=== PATIENT | male | born 1985 | race Caucasian/White ===

== ENCOUNTER 2017-01-31 11:31 | Observation (INO) ==
[2017-01-31] MEDS ORDERED: ONDANSETRON 4 MG/2 ML VIAL IVP ONE (11:47)
[2017-01-31] MEDS ORDERED: Sodium Chloride 0.9% 1,000 ML PRIMARY IV ONE (11:47)
--- NOTE | 2017-01-31 11:53 | PDOC ---
Altered Mental Status HPI - General Chief Complaint: Altered Mental Status Stated Complaint: ALTERED MENTAL STATUS Date Seen by Provider: 01/31/17 Time Seen by Provider: 11:48 Source: POSITIVE: Patient Exam Limitations: POSITIVE: Clinical condition Nurse's Notes Reviewed & Considered: Yes - History of Present Illness Initial Comments: This is a 31-year-old well-developed well-nourished male who has altered mental status. Patient was brought in by his roommate from the job site sleep quarters where he was found lying on the floor this morning by his roommate. Patient had gotten off work this morning went to the sleep shack and it is unsure of why he was on the floor. He is friend was able to get him up and he seemed to be okay and then he heard him fall. At that time he decided to bring the patient in for evaluation. The patient is oriented only to person, not place and time. He is very slow to answer questions and is unable to follow directions. He denies any drug use or alcohol use. He denies any trauma. Blood glucose was 121. Body Location Affected: REPORTS: Head Timing: REPORTS: Unknown Duration: Unknown Severity: Severe Quality: DENIES: Aching, Burning, Cramping, Dullness, Fullness, "Pain", Sharpness, Stabbing, Throbbing, Tenderness, Itching, Pressure, Other Character of AMS: REPORTS: Disoriented, Confused, Trouble Concentrating Context: DENIES: Halfway Resident, Chronic Dementia, Depression, Found Unrespons by Staff, Found Unresp by Bystander, Found Unrespons by Family, Recent Alcohol Intake, Heavy Alcohol Intake, Drug Abuse, Drug Overdose, Trauma, Head Injury, Infection, Family Members Sick, Given D50 [employer], Given Narcan [employer], Good Response to Tx [employer], Marginal Respon to Tx [employer], No Response to Tx [employer], Other FSBS [employer] (Result in comment): Yes (blood sugars was 121) Patient Normals: REPORTS: Confused, Poor Alertness, Disoriented to Time, Disoriented to Place Associated Symptoms: DENIES: Recent Illness, Fever, Chills, Chest Pain, Neck Pain, Back Pain, Difficulty Breathing, Abdominal Pain, Nausea, Vomiting, New Onset Weakness, Decreas. Ability to Stand, Decreased Ability to Walk, Multiple Falls, Off Balance, Fainting, Dizziness, Involuntary Movements, Seizure, Headache, Other Similar Symptoms Previously: No Recent Care Received: REPORTS: Denies Any Prior Injuries Related to Current Complaint?: No - Patient Home Medications Home Medications: Home Medications Amphet Asp/Amphet/D-Amphet [Adderall 10 mg Tablet] 20 mg PO DAILY 02/01/17 Gabapentin 300 mg PO DAILY 02/01/17 Sertraline HCl [Zoloft] 100 mg PO DAILY 02/01/17 - Patient Allergies Allergies/Adverse Reactions: Allergies 3 Allergy/AdvReac Type Severity Reaction Status Date / Time amoxicillin Allergy RASH Verified 01/31/17 15:38 Penicillins Allergy Anaphylaxis Verified 02/01/17 01:21 ROS - Limitations ROS Limitations: Clinical Condition (Due to patient's altered mental status further review of systems is unavailable.), Mental Impairment Altered Mental Physical Exam - General Appearance General Appearance: POSITIVE: Lethargic - HEENT HEENT: POSITIVE: Head Inspection Nml, Eyes Inspection Nml, Ears Inspection Nml, Nose Inspection Nml, Oral/Dental Inspect. Nml, Pharynx Inspect. Nml, PERRL, EOMI - Pupil Size Pupil Size: 4 mm: Bilateral - Neuro/Psych Neurological: POSITIVE: Confusion Cranial Nerves: POSITIVE: Normal As Tested Cerebellar: POSITIVE: Normal As Tested Peripheral Exam: POSITIVE: No Motor Deficits, No Sensory Deficits, Reflexes Normal Reflexes: Patellar (R): 3+, Patellar (L): 3+, Radial (R): 3+, Radial (L): 3+ - Neck Neck: POSITIVE: Supple, Non Tender - Respiratory Respiratory: POSITIVE: No Respiratory Distress, Breath Sounds Normal - Cardiovascular CVS: POSITIVE: Regular Rate and Rhythm, Heart Sounds Normal Peripheral Pulses: Radial (R): 4+, Radial (L): 4+ - Abdomen Abdomen: Soft: (All Quadrants), Normal Bowel Sounds: (All Quadrants), Denies Tenderness: (All Quadrants), No Splenomegaly: (All Quadrants), No Hepatomegaly: (All Quadrants), No Guarding: (All Quadrants), No Rebound: (All Quadrants), No Palpable Pulse: (All Quadrants), No Palpabale Mass: (All Quadrants), No Distention: (All Quadrants), No Rigidity: (All Quadrants) - Skin Skin: POSITIVE: Normal for Race, No Rash, Warm, Dry - Extremities Extremity: Non-Tender: (All Extremities), Normal ROM: (All Extremities), Normal Inspection: (All Extremities), Pelvis Stable: (All Extremities) Procedure - Procedure Sedation Application Support Applied: Yes Rhythm: Sinus Rhythm Oxygen Delivery Method: Room Air Continuous Pulse Ox: Yes Patent IV Line (s): Yes Patient Tolerated Procedure: Good Comment: Patient required a lumbar puncture for evaluation of cerebrospinal fluid due to his altered mental status. He received 40 mg of IV ketamine. He was then placed into a sitting position on the side of the bed, his back was prepped with Betadine and draped in a sterile manner, then 1% plain lidocaine was infiltrated into the L4-L5 interspace and a spinal needle was introduced. I was unable to enter the spinal canal. Spinal needle was withdraw, 1% plain lidocaine was then infiltrated into interspace L3 L4 and a spinal needle was introduced into the spinal canal were clear colorless CSF were obtained. Total of 4 mL was obtained and sent to the lab for studies, needle was withdrawn, Band -Aid was applied, patient was laid recumbent and recovered without complications in the emergency room. - Lumbar Puncture Risks, Benefits, & Alternatives Discussed: No (patient with altered mental status) Time of Treatment: 00:15 Lumbar Puncture Technique: POSITIVE: Sitting Lumbar Puncture Color: POSITIVE: Colorless, Clear Lumbar Puncture Lab Results Reviewed: Yes Altered Mental Status - Results Reviewed By Me Xrays/CTs/US Reviewed: Yes Discussed with Radiologist: Yes Lab Results Reviewed by Me: Yes CBC and BMP: 01/31/17 11:30 01/31/17 20:27 EKG Interpreted/Reviewed By Me:: Yes (sinus bradycardia with rate of 54 beats a minute.) EKG Interpretation:: POSITIVE: Abnormal EKG (Sinus bradycardia) - Patient's Progress Pain Medication Addressed: POSITIVE: No Re-Examine Time:: 01:57 Status: POSITIVE: Improved MDM / ED Course: Patient was examined, an IV started, blood drawn and sent to the lab for studies , radiographic and EKG examinations were obtained. Patient had a very jus and convoluted ER course. His mental status deteriorated and he became highly agitated. He had to be restrained with physical and chemical restraints. He received IV Haldol, Benadryl, Ativan, and ketamine. He was started on a ketamine drip for sedation in order to protect his airway and heart rate. After approximately 12 hours he began to wake up and the restraints were removed. Patient was then alert and oriented to person place and time but continued to have episodes where he was somnolent and minimally responsive. He remained vitally stable with blood pressure in the 120s systolic the entire time. I was able to contact Dr. Rose, the on-call neurologist, who feels that this is most likely metabolic versus overdose and is not a neurologic problem per se. Findings: CBC shows white count to be normal. Comprehensive metabolic panel shows potassium low at 2.9. This improved to 3.5 after a liter of normal saline with 20 mEq of potassium. Sodium was 150, chloride was 114. Magnesium was normal. TSH is normal. Free T4 is slightly low at 0.84. Urine drug screen is positive for methadone and amphetamines. Urine drug screen is negative for all other substances tested. Blood alcohol is negative. CT scan of his head shows no acute intracranial abnormalities. Lumbar puncture shows CSF with an elevated protein of 64, glucose normal, white blood cells are 0.002. No organisms are seen. Urinalysis is negative, carboxyhemoglobin is pending. Assessment: #1 psychosis, I believe that this is likely related to his hypokalemia. Neuropsychiatriclly, hypokalemia may present with memory impairment, disorientation and confusion. Hypokalemia may mimic neurovegetative symptoms such as weakness, lethargy, apathy, fatigue, and depressed mood, additionally hypokalemia can mimic anxiety reaction such as headache, irritability, nervousness, paresthesias, and visual disturbances, and muscle discomfort. Alternatively this could be unknown drug ingestion versus poisoning. #2 hypokalemia. Plan: Admission, plan MRI in the morning, consider potassium replacement. Antibiotics Given: No - Consult Consult (If Yes, Name of Consulting MD & Time Called): Yes (Dr. Beckham. 0100 hrs ) Consulting MD will see pt:: POSITIVE: [facility] [place] Counseled: POSITIVE: Patient, RE: Lab Results, RE: Radiology Results, RE: DX - CAP/CVA/Syncope CAP: POSITIVE: Blood Cultures, Chest X-ray CVA/Syncope: POSITIVE: EKG Patient Care Time - Estimated PCT Patient Care Time (In Minutes): 180 Vital Signs - VS Reviewed Vital Signs Reviewed: Yes Discharge Clinical Impression: Psychosis, Hypokalemia Discharge Disposition: Admit to Inpatient Condition: Stable Date Decision to Admit to Inpatient: 02/01/17 Time Decision to Admit to Inpatient: 01:00
[2017-01-31 11:55] LABS: BASOPHILS # (AUTO) 0.01 10*3/UL; BASOPHILS % (AUTO) 0.2 % (0-1); EOSINOPHILS # (AUTO) 0.02 10*3/UL; EOSINOPHILS % (AUTO) 0.3 % (0-8); Hematocrit [HCT] 49.1 % (42.0-52.0); Hemoglobin [HGB] 17.3 g/dL (14.0-18.0); LYMPHOCYTES # (AUTO) 0.85 10*3/uL; MEAN CORPUSCULAR HEMOGLOBIN 27.8 PG (27-31); MEAN CORPUSCULAR HGB CONC 35.2 g/dL (33-37); MEAN CORPUSCULAR VOLUME 78.8 FL (80-90); MEAN PLATELET VOLUME 10.1 FL (7.4-12.2); MONOCYTES # (AUTO) 0.46 10*3/UL (0.3-0.8); NEUTROPHILS # (AUTO) 5.25 10*3/UL; NEUTROPHILS % (AUTO) 79.4 % (50-80); RED BLOOD COUNT 6.23 10^6/uL (4.70-6.10)
[2017-01-31 11:56] LABS: PLATELET MORPHOLOGY COMMENT NORMAL MORPHOLOGY (NORM); RBC MORPHOLOGY COMMENT NORMAL MORPHOLOGY (NORM); WBC MORPHOLOGY COMMENT NORMAL MORPHOLOGY (NORM)
[2017-01-31 12:03] LABS: BLOOD UREA NITROGEN 9 mg/dL (7-22); BUN/CREATININE RATIO 11.25 (6-20); MAGNESIUM 1.9 mg/dL (1.6-2.4); SERUM ALBUMIN 4.6 g/dL (3.5-4.8)
--- NOTE | 2017-01-31 12:15 | DI ---
CT HEAD SCAN WITHOUT IV CONTRAST, 01/31/2017 11:47 AM : Clinical History: Acute mental status change. Previous Exam: None at this facility. Scans are obtained from the foramen magnum to the vertex without IV contrast. The 4th, 3rd, and lateral ventricles are of normal size, shape, position, and contour for the patient 's age. There are no abnormal areas of increased or decreased density. There is no evidence of an acu te intracranial hemorrhagic focus. There are no extracerebral mantles or shift of the midline structu res. Bone window evaluation is normal. The paranasal sinuses are normal. READING: Normal non contrast CT head scan.
[2017-01-31] MEDS ORDERED: LORazepam 2 MG/1 ML VIAL ONE (13:27)
[2017-01-31] MEDS: LORazepam 2 MG/1 ML VIAL IVP ONE ×3 (13:29→15:44)
[2017-01-31 13:33] LABS: URINE SAMPLE TYPE CLEAN CATCH URINE
[2017-01-31 13:34] LABS: AMPHETAMINE SCREEN POSITIVE (NEG); BILIRUBIN,URINE NEGATIVE (NEG); CANNABINOID SCREEN,URINE NEGATIVE (NEG); CLARITY,URINE CLEAR (CLEAR); COCAINE SCREEN NEGATIVE (NEG); COLOR,URINE YELLOW (Y); GLUCOSE, URINE (UA) NEGATIVE (NEG); METHADONE URINE SCREEN NEGATIVE (NEG); METHAMPHETAMINES SCREEN,URINE NEGATIVE (NEG); NITRATE,URINE NEGATIVE (NEG); OCCULT BLOOD,URINE NEGATIVE (NEG); OPIATE SCREEN,URINE NEGATIVE (NEG); PH,URINE 6.5 (5.0-8.5); PROTEIN,URINE NEGATIVE (NEG)
[2017-01-31] MEDS ORDERED: diphenhydrAMINE 50 MG/1 ML VIAL ONE (13:37)
[2017-01-31] MEDS ORDERED: HALOPERIDOL LACTATE 5 MG/1 ML AMPULE ONE (13:37)
--- NOTE | 2017-01-31 13:52 | EKG ---
[address] [address] Measurements Intervals [place] Rate: 53 P: 72 TX: 157 QRS: 77 QRSD: 141 T: 85 QT: 411 QTc: 393 Interpretive Statements SINUS BRADYCARDIA INTRAVENTRICULAR CONDUCTION DELAY [130+ ms QRS DURATION] No previous ECG available for comparison Electronically Signed On 02-02-17 20:20:55 MDT by Erick Treviño [id number]
[2017-01-31] MEDS ORDERED: LORazepam 2 MG/1 ML VIAL IVP ONE ×2 (14:10→14:18)
[2017-01-31] MEDS ORDERED: diphenhydrAMINE 50 MG/1 ML VIAL IVP ONE (14:18)
[2017-01-31] MEDS ORDERED: HALOPERIDOL LACTATE 5 MG/1 ML AMPULE IVP ONE ×2 (14:40→15:54)
[2017-01-31] MEDS: HALOPERIDOL LACTATE 5 MG/1 ML AMPULE IVP ONE ×2 (14:43→15:38)
[2017-01-31 16:42] LABS: BLOOD UREA NITROGEN 8 mg/dL (7-22); BUN/CREATININE RATIO 11.42 (6-20); SERUM ALBUMIN 4.1 g/dL (3.5-4.8)
[2017-01-31 16:55] LABS: VENOUS PH 7.38 (7.32-7.42)
[2017-01-31 16:59] LABS: VENOUS PH 7.38 (7.32-7.42)
[2017-01-31] MEDS ORDERED: KETAMINE 100 MG/1 ML - 5 ML IV ONE ×3 (16:59→20:15)
[2017-01-31] MEDS ORDERED: Sodium Chloride 0.9% 250 ML IV ONE (17:44)
[2017-01-31 20:39] LABS: BLOOD UREA NITROGEN 9 mg/dL (7-22); BUN/CREATININE RATIO 12.85 (6-20); SERUM ALBUMIN 4.2 g/dL (3.5-4.8)
[2017-01-31] MEDS ORDERED: Sodium Chloride 0.9% 1,000 ML PRIMARY IV SCH (23:47)
[2017-02-01] MEDS ORDERED: LIDOCAINE HCL/PF 1% (10 MG/1 ML) - 2 ML AMP ONE (00:04)
[2017-02-01 00:27] LABS: APPEARANCE, CSF CLEAR (CLEAR); COLOR, CSF COLORLESS (COLOR)
[2017-02-01] MEDS ORDERED: NORMAL SALINE 10 ML SYRINGE FLUSH IVP PRN (03:05)
[2017-02-01] MEDS ORDERED: ONDANSETRON 4 MG/2 ML VIAL IVP PRN (03:05)
[2017-02-01] MEDS ORDERED: LIDOCAINE W/ SODIUM BICARB 0.5 ML SYR SUBD PRN (03:05)
[2017-02-01] MEDS ORDERED: D5W IV SCH ×4 (03:15→19:00)
[2017-02-01] MEDS ORDERED: POTASSIUM CHLORIDE IV SCH ×4 (03:15→19:00)
[2017-02-01] MEDS ORDERED: [UNRECOGNIZED DRUG - OTHER] PRIMARY IV ONE (03:22)
[2017-02-01] MEDS ORDERED: D5 PRIMARY IV ONE (03:22)
[2017-02-01] MEDS ORDERED: KCL PRIMARY IV ONE (03:22)
--- NOTE | 2017-02-01 03:30 | PDOC ---
HPI - History of Present Illness Date and Time of Service: 02/01/2017 3:24 AM Chief Complaint: Altered mental status and fall History of Present Illness: This is a 31 years old male with medical history significant for history of restless leg syndrome, history of drug abuse on Suboxone, ADHD and previous history of hypokalemia who was brought to the hospital by his roommate as he was found lying on the floor this morning by his roommate. Apparently his friend was able to get him up and he seems to be okay then he had a fall. By that time they brought him to the hospital for evaluation. The patient according to the ER notes was only oriented to person but not place and time. He was very slow to answer questions and was unable to follow directions. They had the several testing done including a CT of the head which was negative, he was slightly hyernatremic and he was hypokalemic. In the ER apparently he became very agitated and they had to restrain him with physical and chemical restraint. He received IV Haldol, Benadryl, Ativan and ketamine. He was started on ketamine drip in the ER. The ER physician apparently spoke with the neurologist in [facility] this is most likely metabolic versus overdose. He did an LP on him which showed high protein. Drug screen came back positive for amphetamine, burenorphine. Apparently then the patient woke up and was more oriented to place and time and cooperative so the restraint were removed and he was admitted. The patient remembers is that the he ended up here because he fell. Couldn't tell me more than that. He denied nausea, vomiting, diarrhea. No abdominal pain, no shortness of breath. He was able to tell me his past medical history. He did say that he had stiffness in his muscles before and that was secondary to hypokalemia he was in [place] they kept him in the ER suggested admission but he didn't want to be admitted. He is denying currently drugs that he is to use a prescription medications, is not drinking he chews tobacco. He denied history of fever. He did not bite his tongue. Past Medical History Medical History: 1. Restless leg syndrome. 2. History of drug usage before he is on Suboxone. 3. History of previous hypokalemia about 3 years ago he said he was in [place] they suggested admission but he did not want to be admitted. 4. History of ADHD Family History: Reviewed an Not Pertinent Past Social History: He chews, doesn't drink. Used to have problems with prescription drugs he said but not anymore. Tobacco Use: Never Smoker Do you dip or chew tobacco: Yes (1 can/2 days) In the Past 12 Months, Have Used or Abuse Any of the Following Substance: None Alcohol Use: Rarely Medication / Allergies Home Medications: Home Medications Medication Instructions Recorded Confirmed Type Amphet Asp/Amphet/D-Amphet 20 mg PO DAILY 02/01/17 02/01/17 History [Adderall 10 mg Tablet] Gabapentin 300 mg PO DAILY 02/01/17 02/01/17 History Sertraline HCl [Zoloft] 100 mg PO DAILY 02/01/17 02/01/17 History Allergies/Adverse Reactions: Allergies 3 Allergy/AdvReac Type Severity Reaction Status Date / Time amoxicillin Allergy RASH Verified 01/31/17 15:38 Penicillins Allergy Anaphylaxis Verified 02/01/17 01:21 Review of Systems - Review of Systems All Systems: Reviewed & No Additional Complaints Except as Stated Exam - Vitals Vital Signs: Vital Signs Oxygen Delivery Method Room Air - General Additional General Exam Details: Patient times to drift into sleeping but he would wake up. He knows the day of the month he knows he is in the hospital he knows his name. His date of . - Head Head Exam: Normal Inspection - Eye Eye Exam: POSITIVE: Normal Appearance - ENT ENT Exam: POSITIVE: Normal Exam - Neck Neck Exam: Normal Inspection, Full ROM Additional Neck Exam Details: There is no neck stiffness - Respiratory Respiratory Exam: POSITIVE: Clear to Auscultation - Bilaterally - Cardiovascular Cardiovascular Exam: POSITIVE: RRR - GI/Abdominal GI/Abdominal Exam: POSITIVE: Normal Bowel Sounds, Non Tender, Non Distended, Soft - Rectal Rectal Exam: POSITIVE: Deferred - External Exam: POSITIVE: Deferred - Extremities Extremities Exam: POSITIVE: Normal Inspection - Back Back Exam: POSITIVE: Normal Inspection - Neurological Neurological Exam: POSITIVE: Oriented x 3, CN II-XII Intact, No Facial Droop Additional Neurological Exam Details: Reflexes symmetrical. Pupils equal and reactive. Strength equal in upper extremities. Somewhat decreased in the lower extremities he said he feels stiff. He is slow to move but the other on feel there is a focal weakness - Psychiatric Psychiatric Exam: POSITIVE: Flat Affect - Integumentary Integumentary Exam: POSITIVE: Normal Color Results - Labs CBC and BMP: 01/31/17 11:30 01/31/17 20:27 - EKG Data -: EKG Interpreted by Me Rate: Bradycardia - EKG Data Additional EKG Details: EKG shows sinus bradycardia with incomplete right bundle branch block - Imaging Status: Report Reviewed by Me (CT of the head is negative) Assessment and Plan - Patient Problems (1) Agitation Current Visit: Yes Status: Acute Comment: Seems to be resolved. Looks either secondary to drugs or metabolic. Does not look like infectious in etiology. He said he's been taking his usual medication and no drugs. He did not run out on his medications. I Think will watch him. Ideally we'll do an MRI but unfortunately its weekend and MRI is unavailable. CT of the head was negative. There is high protein in the CSF on clear etiology is either infectious or noninfectious. Seems more likely to be noninfectious, as there is no neck stiffness and the WBC in the CSF only to. Which makes encephalitis or meningitis unlikely. May be related to the medications no gross abnormalities noted on the CT and MRI and one point may be helpful to see if there is an abnormality that would explain the elevated protein. There is no description of seizure activity that was witnessed and he did not bite his tongue and there was no report of him losing control over his bowel or bladder. Code(s): R45.1 - Restlessness and agitation (2) Hypokalemia Current Visit: Yes Status: Acute Comment: He denied to GI losses of fluid. So maybe this is urinary will check potassium and the creatinine spot in the urine. To see this is secondary to renal losses, Continue replacing and rechecking his potassium. Code(s): E87.6 - Hypokalemia (3) Hypernatremia Current Visit: Yes Status: Acute Comment: Probably secondary to fluid loss, He was given normal saline in the ER will switch him to D5 water. Repeat his labs in few hours. Code(s): E87.0 - Hyperosmolality and hypernatremia
[2017-02-01] MEDS ORDERED: Sodium Chloride 0.9% 1,000 ML ONE (03:51)
[2017-02-01] MEDS ORDERED: POTASSIUM CHLORIDE IV ONE ×2 (04:06→19:40)
[2017-02-01] MEDS ORDERED: D5W 1,000 ML PRIMARY IV ONE ×2 (04:09→19:50)
[2017-02-01 08:35] LABS: BASOPHILS # (AUTO) 0.02 10*3/UL; BASOPHILS % (AUTO) 0.2 % (0-1); EOSINOPHILS # (AUTO) 0.03 10*3/UL; EOSINOPHILS % (AUTO) 0.3 % (0-8); Hematocrit [HCT] 42.9 % (42.0-52.0); Hemoglobin [HGB] 15.1 g/dL (14.0-18.0); LYMPHOCYTES # (AUTO) 1.66 10*3/uL; MEAN CORPUSCULAR HEMOGLOBIN 28.3 PG (27-31); MEAN CORPUSCULAR HGB CONC 35.2 g/dL (33-37); MEAN CORPUSCULAR VOLUME 80.3 FL (80-90); MEAN PLATELET VOLUME 10.3 FL (7.4-12.2); MONOCYTES # (AUTO) 0.89 10*3/UL (0.3-0.8); MONOCYTES % (AUTO) 10.2 % (5-15); NEUTROPHILS # (AUTO) 6.12 10*3/UL; NEUTROPHILS % (AUTO) 70.2 % (50-80); RED BLOOD COUNT 5.34 10^6/uL (4.70-6.10)
[2017-02-01 08:40] LABS: PLATELET MORPHOLOGY COMMENT NORMAL MORPHOLOGY (NORM); RBC MORPHOLOGY COMMENT NORMAL MORPHOLOGY (NORM); WBC MORPHOLOGY COMMENT NORMAL MORPHOLOGY (NORM)
[2017-02-01 08:52] LABS: BLOOD UREA NITROGEN 9 mg/dL (7-22); BUN/CREATININE RATIO 11.25 (6-20); SERUM ALBUMIN 3.6 g/dL (3.5-4.8)
[2017-02-01] MEDS: POTASSIUM CHLORIDE 20 MEQ TAB PO SCH (09:39)
[2017-02-01] MEDS: D5-1/2NS + 10mEq KCL 1,000 ML PRIMARY IV SCH ×2 (10:58→20:30)
[2017-02-01 18:21] LABS: BLOOD UREA NITROGEN 6 mg/dL (7-22)
[2017-02-02 03:33] LABS: BLOOD UREA NITROGEN 6 mg/dL (7-22); BUN/CREATININE RATIO 8.57 (6-20)
[2017-02-02 07:42] VITALS: BP 113/67; RESP 16; TEMP 98; O2SAT 96
--- NOTE | 2017-02-02 08:27 | DCSUMMARY ---
Hospitalization Summary Admit Date: 01/31/17 Discharge Date: 02/02/17 Hospital Course: Discharge diagnoses 1. Altered mental status resolved. 2. Hypokalemia improved, probably secondary to excessive soft drink consumption 3. Elevated CK probably secondary to the fall and/or to the hypokalemia 4. History of ADHD 5. History of restless leg syndrome 6. History of drug usage in the past 7. Elevated protein in CSF unclear significance Hospital course This is a 31 years old male with medical history significant for restless leg syndrome, history of prescription drug abuse in the past on Suboxone, ADHD and previous history of hypokalemia who was brought to the hospital by his roommate. he was found lying on the floor on the morning of admission by his roommate. Apparently his friend was able to get him up and he seems to be okay then he had a fall. after that they brought him to the hospital for evaluation. The patient when they brought him to the ER was only oriented to person but not place and time. He was very slow to answer questions and was unable to follow directions. He had several testing done including a CT of the head which was negative, he was slightly hypernatremic and severely hypokalemic. In the ER he became very agitated and they had to restrain him with physical and chemical restraints. He received IV Haldol, Benadryl, Ativan and ketamine. He was then started on ketamine drip. He was kept in the ER. Apparently the ER physician spoke with the neurologist in [place] which thought this is likely metabolic versus drug overdose. He had an LP which showed high protein. Drug screen came back positive for amphetamine, burenorphine. Apparently the patient then woke up and was more oriented to place and time and was cooperative so the restraints were removed and he was admitted. When I initially talked him he was he said that he is here in the hospital because he fell. He was able to give me his past medical history. He had a history of drug usage, prescription drugs, in the past and that's why he is on the Suboxone. His exam apart from being withdrawn was not remarkable. We put him on IV fluids with potassium watched him overnight. The next day he was much better he was with it was cooperative his exam was unremarkable. He walked around the nurse's station and did well we thought he could be discharged home, he needs follow-up with his primary. The reason for the hypokalemia is either secondary to renal tubular defect versus chronic soft drink consumption. I'm leaning more towards that this is more chronic soft drink consumption as he drinks 8 cans a day, each is 12 ounces so he is drinking about 2.8 L a day. I told him he needs to stop drinking soft drinks and recheck his potassium with his primary if it is continue to be normal then probably this is related to the soft drink consumption, if his potassium goes down then maybe its tubular defects like Bartter syndrome although seems less likely. His blood pressure remained normal so that's argues against hyperaldosteronism. He did have a CT of the head which was negative. The significance of elevated the protein in the CSF is unclear. The white count in the fluid was two so that 's argues against meningitis or encephalitis as a cause for his the presentation. He needs follow-up with his primary they may consider MRI as an outpatient. The cause of the agitation is not clear the urine test was positive as I mentioned but he said that he takes those medications. It's possible that the agitation was metabolic or drug related. The episode though is resolved. Does not look like a seizure. There was no loss of urine or bowel control and the no history of biting his tongue. The ER physician sent few CSF testing including testing for viral infections, however as I said the white cell count was two so that argues against it. Patient clinically is much improved so I don't see a reason to keep him, those tests are send out and probably we will get it a week from now. Laboratory Results 01/31/17 01/31/17 01/31/17 Range/Units 11:30 11:30 11:30 WBC 6.60 (4.8-10.8) 10^3/uL RBC 6.23 H (4.70-6.10) 10^6/uL Hgb 17.3 (14.0-18.0) g/dL Hct 49.1 (42.0-52.0) % MCV 78.8 L (80-90) FL MCH 27.8 (27-31) PG MCHC 35.2 (33-37) g/dL RDW Std Deviation 39.4 (39-50) fL RDW Coeff of Nishant 13.7 (11.5-14.5) % Plt Count 277 (140-350) 10*3/uL MPV 10.1 (7.4-12.2) FL Immature Gran % (Auto) 0.2 (0-5) % Neut % (Auto) 79.4 (50-80) % Lymph % (Auto) 12.9 (10-50) % [place] % (Auto) 7.0 (5-15) % Eos % (Auto) 0.3 (0-8) % Baso % (Auto) 0.2 (0-1) % Immature Gran # (Auto) 0.01 10*3/UL Neut # (Auto) 5.25 10*3/UL Lymph # (Auto) 0.85 10*3/uL [place] # (Auto) 0.46 (0.3-0.8) 10*3/UL Eos # (Auto) 0.02 10*3/UL Baso # (Auto) 0.01 10*3/UL WBC Morphology Comment Normal morphology (NORM) Plt Morphology Comment Normal morphology (NORM) RBC Morph Comment Normal morphology (NORM) VBG pH (7.32-7.42) VBG pCO2 (45-55) mmHg VBG HCO3 (22-26) mmol/L VBG Base Excess (-2-2) MMOL/L Sodium 146 H (135-145) meq/L Potassium 2.6 L (3.8-5.2) meq/L Chloride 105 (98-112) meq/L Carbon Dioxide 28 (23-33) meq/L Anion Gap 13 (5-20) BUN 9 (7-22) mg/dL Creatinine 0.8 (0.70-1.50) mg/dL Estimated GFR > 60 (>60 ml/min/1.73m(2)) BUN/Creatinine Ratio 11.25 (6-20) Glucose 119 H (78-110) mg/dL Calculated Osmolality 301.0 H (267-292) mOsm/kg Lactic Acid (0.70-2.10) MMOL/L Calcium 10.2 (8.7-10.7) mg/dL Magnesium 1.9 (1.6-2.4) mg/dL Total Bilirubin 0.6 (0.3-1.2) mg/dL AST 30 (21-57) IU/L ALT 45 (21-72) IU/L Alkaline Phosphatase 66 (38-126) IU/L Total Creatine Kinase (55-170) IU/L C-Reactive Protein 0.5 (0.0-0.9) mg/dL Total Protein 7.9 (6.1-8.0) g/dL Albumin 4.6 (3.5-4.8) g/dL Globulin 3.3 (2.50-4.10) g/dL Albumin/Globulin Ratio 1.30 (1.3-2.0) mg/g TSH 1.44 (0.2700-4.2000) uIU/mL Free T4 0.82 L (0.93-1.71) ng/dL Ur Collection Type Urine Color (Y) Urine Clarity (CLEAR) Urine pH (5.0-8.5) Ur Specific [place] (1.005-1.030) U Specif Grav (Refrac) Urine Protein (NEG) mg/dl Urine Glucose (UA) (NEG) mg/dL Urine Ketones (NEG) Urine Occult Blood (NEG) Urine Nitrate (NEG) Urine Bilirubin (NEG) Urine Urobilinogen (0.2) EU/dL Ur Leukocyte Esterase (NEG) Ur Culture Indicated? Ur Random Creatinine MG/DL Ur Random Potassium (25.0-125.0) MMOL/DAY CSF Volume ML CSF Appearance (CLEAR) CSF Color (COLOR) CSF WBC (0-0.010) 10^3/uL CSF RBC (0-0.010) 10^6/uL CSF Glucose (50.0-80.0) mg/dL CSF Total Protein (15.0-45.0) mg/dL Urine Opiates Screen (NEG) Ur Buprenorphine (NEG) Ur Oxycodone Screen (NEG) Urine Methadone Screen (NEG) Ur Propoxyphene Screen (NEG) Barbiturate Screen (NEG) U Tricyclic Antidepress (NEG) Phencyclidine Screen (NEG) Amphetamines Screen (NEG) U Methamphetamines Scrn (NEG) Benzodiazepines Screen (NEG) Cocaine Screen (NEG) U Marijuana (THC) Screen (NEG) Serum Alcohol 10 (0-10) mg/dL 01/31/17 01/31/17 01/31/17 Range/Units 11:51 13:05 14:17 WBC (4.8-10.8) 10^3/uL RBC (4.70-6.10) 10^6/uL Hgb (14.0-18.0) g/dL Hct (42.0-52.0) % MCV (80-90) FL MCH (27-31) PG MCHC (33-37) g/dL RDW Std Deviation (39-50) fL RDW Coeff of Nishant (11.5-14.5) % Plt Count (140-350) 10*3/uL MPV (7.4-12.2) FL Immature Gran % (Auto) (0-5) % Neut % (Auto) (50-80) % Lymph % (Auto) (10-50) % [place] % (Auto) (5-15) % Eos % (Auto) (0-8) % Baso % (Auto) (0-1) % Immature Gran # (Auto) 10*3/UL Neut # (Auto) 10*3/UL Lymph # (Auto) 10*3/uL [place] # (Auto) (0.3-0.8) 10*3/UL Eos # (Auto) 10*3/UL Baso # (Auto) 10*3/UL WBC Morphology Comment (NORM) Plt Morphology Comment (NORM) RBC Morph Comment (NORM) VBG pH 7.38 (7.32-7.42) VBG pCO2 34 L (45-55) mmHg VBG HCO3 20 L (22-26) mmol/L VBG Base Excess -5 L (-2-2) MMOL/L Sodium (135-145) meq/L Potassium (3.8-5.2) meq/L Chloride (98-112) meq/L Carbon Dioxide (23-33) meq/L Anion Gap (5-20) BUN (7-22) mg/dL Creatinine (0.70-1.50) mg/dL Estimated GFR (>60 ml/min/1.73m(2)) BUN/Creatinine Ratio (6-20) Glucose (78-110) mg/dL Calculated Osmolality (267-292) mOsm/kg Lactic Acid 1.3 (0.70-2.10) MMOL/L Calcium (8.7-10.7) mg/dL Magnesium (1.6-2.4) mg/dL Total Bilirubin (0.3-1.2) mg/dL AST (21-57) IU/L ALT (21-72) IU/L Alkaline Phosphatase (38-126) IU/L Total Creatine Kinase (55-170) IU/L C-Reactive Protein (0.0-0.9) mg/dL Total Protein (6.1-8.0) g/dL Albumin (3.5-4.8) g/dL Globulin (2.50-4.10) g/dL Albumin/Globulin Ratio (1.3-2.0) mg/g TSH (0.2700-4.2000) uIU/mL Free T4 (0.93-1.71) ng/dL Ur Collection Type Clean catch urine Urine Color Yellow (Y) Urine Clarity Clear (CLEAR) Urine pH 6.5 (5.0-8.5) Ur Specific [place] 1.010 (1.005-1.030) U Specif Grav (Refrac) 1.010 Urine Protein Negative (NEG) mg/dl Urine Glucose (UA) Negative (NEG) mg/dL Urine Ketones Negative (NEG) Urine Occult Blood Negative (NEG) Urine Nitrate Negative (NEG) Urine Bilirubin Negative (NEG) Urine Urobilinogen 1.0 (0.2) EU/dL Ur Leukocyte Esterase Negative (NEG) Ur Culture Indicated? Culture not set Ur Random Creatinine MG/DL Ur Random Potassium (25.0-125.0) MMOL/DAY CSF Volume ML CSF Appearance (CLEAR) CSF Color (COLOR) CSF WBC (0-0.010) 10^3/uL CSF RBC (0-0.010) 10^6/uL CSF Glucose (50.0-80.0) mg/dL CSF Total Protein (15.0-45.0) mg/dL Urine Opiates Screen Negative (NEG) Ur Buprenorphine Positive H (NEG) Ur Oxycodone Screen Negative (NEG) Urine Methadone Screen Negative (NEG) Ur Propoxyphene Screen Negative (NEG) Barbiturate Screen Negative (NEG) U Tricyclic Antidepress Negative (NEG) Phencyclidine Screen Negative (NEG) Amphetamines Screen Positive H (NEG) U Methamphetamines Scrn Negative (NEG) Benzodiazepines Screen Negative (NEG) Cocaine Screen Negative (NEG) U Marijuana (THC) Screen Negative (NEG) Serum Alcohol (0-10) mg/dL 01/31/17 01/31/17 01/31/17 Range/Units 16:34 16:46 20:27 WBC (4.8-10.8) 10^3/uL RBC (4.70-6.10) 10^6/uL Hgb (14.0-18.0) g/dL Hct (42.0-52.0) % MCV (80-90) FL MCH (27-31) PG MCHC (33-37) g/dL RDW Std Deviation (39-50) fL RDW Coeff of Nishant (11.5-14.5) % Plt Count (140-350) 10*3/uL MPV (7.4-12.2) FL Immature Gran % (Auto) (0-5) % Neut % (Auto) (50-80) % Lymph % (Auto) (10-50) % [place] % (Auto) (5-15) % Eos % (Auto) (0-8) % Baso % (Auto) (0-1) % Immature Gran # (Auto) 10*3/UL Neut # (Auto) 10*3/UL Lymph # (Auto) 10*3/uL [place] # (Auto) (0.3-0.8) 10*3/UL Eos # (Auto) 10*3/UL Baso # (Auto) 10*3/UL WBC Morphology Comment (NORM) Plt Morphology Comment (NORM) RBC Morph Comment (NORM) VBG pH 7.38 (7.32-7.42) VBG pCO2 35 L (45-55) mmHg VBG HCO3 21 L (22-26) mmol/L VBG Base Excess -4 L (-2-2) MMOL/L Sodium 148 H 150 H (135-145) meq/L Potassium 3.3 L 3.5 L (3.8-5.2) meq/L Chloride 114 H 114 H (98-112) meq/L Carbon Dioxide 23 24 (23-33) meq/L Anion Gap 11 12 (5-20) BUN 8 9 (7-22) mg/dL Creatinine 0.7 0.7 (0.70-1.50) mg/dL Estimated GFR > 60 > 60 (>60 ml/min/1.73m(2)) BUN/Creatinine Ratio 11.42 12.85 (6-20) Glucose 110 92 (78-110) mg/dL Calculated Osmolality 304.0 H 308.0 H (267-292) mOsm/kg Lactic Acid (0.70-2.10) MMOL/L Calcium 9.4 9.5 (8.7-10.7) mg/dL Magnesium (1.6-2.4) mg/dL Total Bilirubin 0.6 0.7 (0.3-1.2) mg/dL AST 33 42 (21-57) IU/L ALT 41 49 (21-72) IU/L Alkaline Phosphatase 57 66 (38-126) IU/L Total Creatine Kinase (55-170) IU/L C-Reactive Protein (0.0-0.9) mg/dL Total Protein 6.9 7.1 (6.1-8.0) g/dL Albumin 4.1 4.2 (3.5-4.8) g/dL Globulin 2.8 2.9 (2.50-4.10) g/dL Albumin/Globulin Ratio 1.40 1.40 (1.3-2.0) mg/g TSH (0.2700-4.2000) uIU/mL Free T4 (0.93-1.71) ng/dL Ur Collection Type Urine Color (Y) Urine Clarity (CLEAR) Urine pH (5.0-8.5) Ur Specific [place] (1.005-1.030) U Specif Grav (Refrac) Urine Protein (NEG) mg/dl Urine Glucose (UA) (NEG) mg/dL Urine Ketones (NEG) Urine Occult Blood (NEG) Urine Nitrate (NEG) Urine Bilirubin (NEG) Urine Urobilinogen (0.2) EU/dL Ur Leukocyte Esterase (NEG) Ur Culture Indicated? Ur Random Creatinine MG/DL Ur Random Potassium (25.0-125.0) MMOL/DAY CSF Volume ML CSF Appearance (CLEAR) CSF Color (COLOR) CSF WBC (0-0.010) 10^3/uL CSF RBC (0-0.010) 10^6/uL CSF Glucose (50.0-80.0) mg/dL CSF Total Protein (15.0-45.0) mg/dL Urine Opiates Screen (NEG) Ur Buprenorphine (NEG) Ur Oxycodone Screen (NEG) Urine Methadone Screen (NEG) Ur Propoxyphene Screen (NEG) Barbiturate Screen (NEG) U Tricyclic Antidepress (NEG) Phencyclidine Screen (NEG) Amphetamines Screen (NEG) U Methamphetamines Scrn (NEG) Benzodiazepines Screen (NEG) Cocaine Screen (NEG) U Marijuana (THC) Screen (NEG) Serum Alcohol (0-10) mg/dL 01/31/17 02/01/17 02/01/17 Range/Units 23:19 00:10 04:00 WBC (4.8-10.8) 10^3/uL RBC (4.70-6.10) 10^6/uL Hgb (14.0-18.0) g/dL Hct (42.0-52.0) % MCV (80-90) FL MCH (27-31) PG MCHC (33-37) g/dL RDW Std Deviation (39-50) fL RDW Coeff of Nishant (11.5-14.5) % Plt Count (140-350) 10*3/uL MPV (7.4-12.2) FL Immature Gran % (Auto) (0-5) % Neut % (Auto) (50-80) % Lymph % (Auto) (10-50) % [place] % (Auto) (5-15) % Eos % (Auto) (0-8) % Baso % (Auto) (0-1) % Immature Gran # (Auto) 10*3/UL Neut # (Auto) 10*3/UL Lymph # (Auto) 10*3/uL [place] # (Auto) (0.3-0.8) 10*3/UL Eos # (Auto) 10*3/UL Baso # (Auto) 10*3/UL WBC Morphology Comment (NORM) Plt Morphology Comment (NORM) RBC Morph Comment (NORM) VBG pH (7.32-7.42) VBG pCO2 (45-55) mmHg VBG HCO3 (22-26) mmol/L VBG Base Excess (-2-2) MMOL/L Sodium (135-145) meq/L Potassium (3.8-5.2) meq/L Chloride (98-112) meq/L Carbon Dioxide (23-33) meq/L Anion Gap (5-20) BUN (7-22) mg/dL Creatinine (0.70-1.50) mg/dL Estimated GFR (>60 ml/min/1.73m(2)) BUN/Creatinine Ratio (6-20) Glucose (78-110) mg/dL Calculated Osmolality (267-292) mOsm/kg Lactic Acid (0.70-2.10) MMOL/L Calcium (8.7-10.7) mg/dL Magnesium 1.8 (1.6-2.4) mg/dL Total Bilirubin (0.3-1.2) mg/dL AST (21-57) IU/L ALT (21-72) IU/L Alkaline Phosphatase (38-126) IU/L Total Creatine Kinase (55-170) IU/L C-Reactive Protein (0.0-0.9) mg/dL Total Protein (6.1-8.0) g/dL Albumin (3.5-4.8) g/dL Globulin (2.50-4.10) g/dL Albumin/Globulin Ratio (1.3-2.0) mg/g TSH (0.2700-4.2000) uIU/mL Free T4 (0.93-1.71) ng/dL Ur Collection Type Urine Color (Y) Urine Clarity (CLEAR) Urine pH (5.0-8.5) Ur Specific [place] (1.005-1.030) U Specif Grav (Refrac) Urine Protein (NEG) mg/dl Urine Glucose (UA) (NEG) mg/dL Urine Ketones (NEG) Urine Occult Blood (NEG) Urine Nitrate (NEG) Urine Bilirubin (NEG) Urine Urobilinogen (0.2) EU/dL Ur Leukocyte Esterase (NEG) Ur Culture Indicated? Ur Random Creatinine 97.9 MG/DL Ur Random Potassium (25.0-125.0) MMOL/DAY CSF Volume 4 ML CSF Appearance Clear (CLEAR) CSF Color Colorless (COLOR) CSF WBC 0.002 (0-0.010) 10^3/uL CSF RBC 0.001 (0-0.010) 10^6/uL CSF Glucose 56 (50.0-80.0) mg/dL CSF Total Protein 62 H (15.0-45.0) mg/dL Urine Opiates Screen (NEG) Ur Buprenorphine (NEG) Ur Oxycodone Screen (NEG) Urine Methadone Screen (NEG) Ur Propoxyphene Screen (NEG) Barbiturate Screen (NEG) U Tricyclic Antidepress (NEG) Phencyclidine Screen (NEG) Amphetamines Screen (NEG) U Methamphetamines Scrn (NEG) Benzodiazepines Screen (NEG) Cocaine Screen (NEG) U Marijuana (THC) Screen (NEG) Serum Alcohol (0-10) mg/dL 02/01/17 02/01/17 02/01/17 Range/Units 04:00 08:00 08:00 WBC 8.73 (4.8-10.8) 10^3/uL RBC 5.34 (4.70-6.10) 10^6/uL Hgb 15.1 (14.0-18.0) g/dL Hct 42.9 (42.0-52.0) % MCV 80.3 (80-90) FL MCH 28.3 (27-31) PG MCHC 35.2 (33-37) g/dL RDW Std Deviation 39.5 (39-50) fL RDW Coeff of Nishant 13.7 (11.5-14.5) % Plt Count 268 (140-350) 10*3/uL MPV 10.3 (7.4-12.2) FL Immature Gran % (Auto) 0.1 (0-5) % Neut % (Auto) 70.2 (50-80) % Lymph % (Auto) 19.0 (10-50) % [place] % (Auto) 10.2 (5-15) % Eos % (Auto) 0.3 (0-8) % Baso % (Auto) 0.2 (0-1) % Immature Gran # (Auto) 0.01 10*3/UL Neut # (Auto) 6.12 10*3/UL Lymph # (Auto) 1.66 10*3/uL [place] # (Auto) 0.89 H (0.3-0.8) 10*3/UL Eos # (Auto) 0.03 10*3/UL Baso # (Auto) 0.02 10*3/UL WBC Morphology Comment Normal morphology (NORM) Plt Morphology Comment Normal morphology (NORM) RBC Morph Comment Normal morphology (NORM) VBG pH (7.32-7.42) VBG pCO2 (45-55) mmHg VBG HCO3 (22-26) mmol/L VBG Base Excess (-2-2) MMOL/L Sodium 144 (135-145) meq/L Potassium 3.9 (3.8-5.2) meq/L Chloride 107 (98-112) meq/L Carbon Dioxide 24 (23-33) meq/L Anion Gap 13 (5-20) BUN 9 (7-22) mg/dL Creatinine 0.8 (0.70-1.50) mg/dL Estimated GFR > 60 (>60 ml/min/1.73m(2)) BUN/Creatinine Ratio 11.25 (6-20) Glucose 114 H (78-110) mg/dL Calculated Osmolality 297.0 H (267-292) mOsm/kg Lactic Acid (0.70-2.10) MMOL/L Calcium 9.3 (8.7-10.7) mg/dL Magnesium (1.6-2.4) mg/dL Total Bilirubin 0.6 (0.3-1.2) mg/dL AST 49 (21-57) IU/L ALT 44 (21-72) IU/L Alkaline Phosphatase 52 (38-126) IU/L Total Creatine Kinase (55-170) IU/L C-Reactive Protein (0.0-0.9) mg/dL Total Protein 6.1 (6.1-8.0) g/dL Albumin 3.6 (3.5-4.8) g/dL Globulin 2.5 (2.50-4.10) g/dL Albumin/Globulin Ratio 1.40 (1.3-2.0) mg/g TSH (0.2700-4.2000) uIU/mL Free T4 (0.93-1.71) ng/dL Ur Collection Type Urine Color (Y) Urine Clarity (CLEAR) Urine pH (5.0-8.5) Ur Specific [place] (1.005-1.030) U Specif Grav (Refrac) Urine Protein (NEG) mg/dl Urine Glucose (UA) (NEG) mg/dL Urine Ketones (NEG) Urine Occult Blood (NEG) Urine Nitrate (NEG) Urine Bilirubin (NEG) Urine Urobilinogen (0.2) EU/dL Ur Leukocyte Esterase (NEG) Ur Culture Indicated? Ur Random Creatinine MG/DL Ur Random Potassium 51.4 (25.0-125.0) MMOL/DAY CSF Volume ML CSF Appearance (CLEAR) CSF Color (COLOR) CSF WBC (0-0.010) 10^3/uL CSF RBC (0-0.010) 10^6/uL CSF Glucose (50.0-80.0) mg/dL CSF Total Protein (15.0-45.0) mg/dL Urine Opiates Screen (NEG) Ur Buprenorphine (NEG) Ur Oxycodone Screen (NEG) Urine Methadone Screen (NEG) Ur Propoxyphene Screen (NEG) Barbiturate Screen (NEG) U Tricyclic Antidepress (NEG) Phencyclidine Screen (NEG) Amphetamines Screen (NEG) U Methamphetamines Scrn (NEG) Benzodiazepines Screen (NEG) Cocaine Screen (NEG) U Marijuana (THC) Screen (NEG) Serum Alcohol (0-10) mg/dL 02/01/17 02/01/17 02/02/17 Range/Units 18:00 18:10 03:18 WBC (4.8-10.8) 10^3/uL RBC (4.70-6.10) 10^6/uL Hgb (14.0-18.0) g/dL Hct (42.0-52.0) % MCV (80-90) FL MCH (27-31) PG MCHC (33-37) g/dL RDW Std Deviation (39-50) fL RDW Coeff of Nishant (11.5-14.5) % Plt Count (140-350) 10*3/uL MPV (7.4-12.2) FL Immature Gran % (Auto) (0-5) % Neut % (Auto) (50-80) % Lymph % (Auto) (10-50) % [place] % (Auto) (5-15) % Eos % (Auto) (0-8) % Baso % (Auto) (0-1) % Immature Gran # (Auto) 10*3/UL Neut # (Auto) 10*3/UL Lymph # (Auto) 10*3/uL [place] # (Auto) (0.3-0.8) 10*3/UL Eos # (Auto) 10*3/UL Baso # (Auto) 10*3/UL WBC Morphology Comment (NORM) Plt Morphology Comment (NORM) RBC Morph Comment (NORM) VBG pH (7.32-7.42) VBG pCO2 (45-55) mmHg VBG HCO3 (22-26) mmol/L VBG Base Excess (-2-2) MMOL/L Sodium 148 H 144 (135-145) meq/L Potassium 3.9 4.2 (3.8-5.2) meq/L Chloride 112 107 (98-112) meq/L Carbon Dioxide 24 26 (23-33) meq/L Anion Gap 12 11 (5-20) BUN 6 L 6 L (7-22) mg/dL Creatinine 0.8 0.7 (0.70-1.50) mg/dL Estimated GFR > 60 > 60 (>60 ml/min/1.73m(2)) BUN/Creatinine Ratio 7.50 8.57 (6-20) Glucose 113 H 99 (78-110) mg/dL Calculated Osmolality 304.0 H 295.0 H (267-292) mOsm/kg Lactic Acid (0.70-2.10) MMOL/L Calcium 9.0 9.4 (8.7-10.7) mg/dL Magnesium (1.6-2.4) mg/dL Total Bilirubin (0.3-1.2) mg/dL AST (21-57) IU/L ALT (21-72) IU/L Alkaline Phosphatase (38-126) IU/L Total Creatine Kinase 1362 H (55-170) IU/L C-Reactive Protein (0.0-0.9) mg/dL Total Protein (6.1-8.0) g/dL Albumin (3.5-4.8) g/dL Globulin (2.50-4.10) g/dL Albumin/Globulin Ratio (1.3-2.0) mg/g TSH (0.2700-4.2000) uIU/mL Free T4 (0.93-1.71) ng/dL Ur Collection Type Urine Color (Y) Urine Clarity (CLEAR) Urine pH (5.0-8.5) Ur Specific [place] (1.005-1.030) U Specif Grav (Refrac) Urine Protein (NEG) mg/dl Urine Glucose (UA) (NEG) mg/dL Urine Ketones (NEG) Urine Occult Blood (NEG) Urine Nitrate (NEG) Urine Bilirubin (NEG) Urine Urobilinogen (0.2) EU/dL Ur Leukocyte Esterase (NEG) Ur Culture Indicated? Ur Random Creatinine MG/DL Ur Random Potassium (25.0-125.0) MMOL/DAY CSF Volume ML CSF Appearance (CLEAR) CSF Color (COLOR) CSF WBC (0-0.010) 10^3/uL CSF RBC (0-0.010) 10^6/uL CSF Glucose (50.0-80.0) mg/dL CSF Total Protein (15.0-45.0) mg/dL Urine Opiates Screen (NEG) Ur Buprenorphine (NEG) Ur Oxycodone Screen (NEG) Urine Methadone Screen (NEG) Ur Propoxyphene Screen (NEG) Barbiturate Screen (NEG) U Tricyclic Antidepress (NEG) Phencyclidine Screen (NEG) Amphetamines Screen (NEG) U Methamphetamines Scrn (NEG) Benzodiazepines Screen (NEG) Cocaine Screen (NEG) U Marijuana (THC) Screen (NEG) Serum Alcohol (0-10) mg/dL 02/02/17 02/02/17 Range/Units 03:18 03:18 WBC (4.8-10.8) 10^3/uL RBC (4.70-6.10) 10^6/uL Hgb (14.0-18.0) g/dL Hct (42.0-52.0) % MCV (80-90) FL MCH (27-31) PG MCHC (33-37) g/dL RDW Std Deviation (39-50) fL RDW Coeff of Nishant (11.5-14.5) % Plt Count (140-350) 10*3/uL MPV (7.4-12.2) FL Immature Gran % (Auto) (0-5) % Neut % (Auto) (50-80) % Lymph % (Auto) (10-50) % [place] % (Auto) (5-15) % Eos % (Auto) (0-8) % Baso % (Auto) (0-1) % Immature Gran # (Auto) 10*3/UL Neut # (Auto) 10*3/UL Lymph # (Auto) 10*3/uL [place] # (Auto) (0.3-0.8) 10*3/UL Eos # (Auto) 10*3/UL Baso # (Auto) 10*3/UL WBC Morphology Comment (NORM) Plt Morphology Comment (NORM) RBC Morph Comment (NORM) VBG pH (7.32-7.42) VBG pCO2 (45-55) mmHg VBG HCO3 (22-26) mmol/L VBG Base Excess (-2-2) MMOL/L Sodium (135-145) meq/L Potassium (3.8-5.2) meq/L Chloride (98-112) meq/L Carbon Dioxide (23-33) meq/L Anion Gap (5-20) BUN (7-22) mg/dL Creatinine (0.70-1.50) mg/dL Estimated GFR (>60 ml/min/1.73m(2)) BUN/Creatinine Ratio (6-20) Glucose (78-110) mg/dL Calculated Osmolality (267-292) mOsm/kg Lactic Acid (0.70-2.10) MMOL/L Calcium (8.7-10.7) mg/dL Magnesium 2.0 (1.6-2.4) mg/dL Total Bilirubin (0.3-1.2) mg/dL AST (21-57) IU/L ALT (21-72) IU/L Alkaline Phosphatase (38-126) IU/L Total Creatine Kinase 1167 H (55-170) IU/L C-Reactive Protein (0.0-0.9) mg/dL Total Protein (6.1-8.0) g/dL Albumin (3.5-4.8) g/dL Globulin (2.50-4.10) g/dL Albumin/Globulin Ratio (1.3-2.0) mg/g TSH (0.2700-4.2000) uIU/mL Free T4 (0.93-1.71) ng/dL Ur Collection Type Urine Color (Y) Urine Clarity (CLEAR) Urine pH (5.0-8.5) Ur Specific [place] (1.005-1.030) U Specif Grav (Refrac) Urine Protein (NEG) mg/dl Urine Glucose (UA) (NEG) mg/dL Urine Ketones (NEG) Urine Occult Blood (NEG) Urine Nitrate (NEG) Urine Bilirubin (NEG) Urine Urobilinogen (0.2) EU/dL Ur Leukocyte Esterase (NEG) Ur Culture Indicated? Ur Random Creatinine MG/DL Ur Random Potassium (25.0-125.0) MMOL/DAY CSF Volume ML CSF Appearance (CLEAR) CSF Color (COLOR) CSF WBC (0-0.010) 10^3/uL CSF RBC (0-0.010) 10^6/uL CSF Glucose (50.0-80.0) mg/dL CSF Total Protein (15.0-45.0) mg/dL Urine Opiates Screen (NEG) Ur Buprenorphine (NEG) Ur Oxycodone Screen (NEG) Urine Methadone Screen (NEG) Ur Propoxyphene Screen (NEG) Barbiturate Screen (NEG) U Tricyclic Antidepress (NEG) Phencyclidine Screen (NEG) Amphetamines Screen (NEG) U Methamphetamines Scrn (NEG) Benzodiazepines Screen (NEG) Cocaine Screen (NEG) U Marijuana (THC) Screen (NEG) Serum Alcohol (0-10) mg/dL Discharge instruction Diet regular Activity as tolerated Medications Current Medication(s) 3 Medication Instructions Recorded Confirmed Type Amphet Asp/Amphet/D-Amphet 20 mg PO DAILY 02/01/17 02/01/17 History [Adderall 10 mg Tablet] Gabapentin 300 mg PO DAILY 02/01/17 02/01/17 History Sertraline HCl [Zoloft] 100 mg PO DAILY 02/01/17 02/01/17 History Potassium Chloride [Klor-Con] 10 meq PO DAILY #5 tab 02/02/17 Rx Follow-up with his PCP in 1-2 weeks Condition at discharge was stable for discharge Exam - Vitals Vital Signs: Vital Signs Temperature 98.0 F Temperature Source Temporal Artery Scan Pulse Rate [Pulse Oximeter] 76 Pulse Rate 94 Respiratory Rate 16 Blood Pressure [Left Arm] 113/67 Blood Pressure 104/54 Pulse Ox 96 Oxygen Delivery Method Room Air Height 5 ft 11 in Weight 169 lb 12.8 oz - General General Appearance: No Acute Distress, Cooperative - Head Head Exam: Normal Inspection - Eye Eye Exam: POSITIVE: Normal Appearance - ENT ENT Exam: POSITIVE: Normal Exam - Neck Neck Exam: Normal Inspection - Respiratory Respiratory Exam: POSITIVE: Clear to Auscultation - Bilaterally - Cardiovascular Cardiovascular Exam: POSITIVE: RRR - GI/Abdominal GI/Abdominal Exam: POSITIVE: Normal Bowel Sounds, Non Tender, Non Distended, Soft - Rectal Rectal Exam: POSITIVE: Deferred - External Exam: POSITIVE: Deferred - Extremities Extremities Exam: POSITIVE: Normal Inspection - Back Back Exam: POSITIVE: Normal Inspection - Neurological Neurological Exam: POSITIVE: Alert, Oriented x 3, Reflexes Normal, Normal Gait, CN II-XII Intact, No Facial Droop, Speech Intact / Clear, Moves All Extremities Equally - Psychiatric Psychiatric Exam: POSITIVE: Normal Affect - Integumentary Integumentary Exam: POSITIVE: Normal Color Patient Problems - Patient Problem List (1) Agitation Status: Acute Code(s): R45.1 - Restlessness and agitation Category: Medical (2) Hypokalemia Status: Acute Code(s): E87.6 - Hypokalemia Category: Medical (3) Hypernatremia Status: Acute Code(s): E87.0 - Hyperosmolality and hypernatremia Category: Medical
[2017-02-02] MEDS: POTASSIUM CHLORIDE 20 MEQ TAB PO SCH (09:01)
== END 2017-02-02 09:45 | disposition home or self-care (01) ==
LOC: MED/SURG 11:31 → ER 11:31
PROVIDERS: ADMIT Internal Medicine; ATTEND Internal Medicine